=== PATIENT | female | born 1995 | race Two or more races ===

== ENCOUNTER 2018-10-22 07:25 | Emergency (ER) | payer SELFPAY ==
[~2018-10-22] VITALS: Ht 157.5 cm; Wt 85.0 kg
[2018-10-22 07:30] VITALS: BP 113/70
--- NOTE | 2018-10-22 09:19 | NUR ---
Patient/Caregiver given discharge instructions and they have confirmed that they understand the instructions. Patient ambulatory with steady gait. Pt left with all personal belongings.
== END 2018-10-22 09:24 | disposition home or self-care (01) ==
LOC: ED 09:15
DX: J18.0 Bronchopneumonia, unspecified organism (principal)
CPT/HCPCS: 71046; 99283